=== PATIENT | male | born 1970 | race Two or more races ===

== ENCOUNTER 2016-07-08 18:57 | Emergency (ER) | payer OTHER ==
[~2016-07-08] VITALS: Ht 177.8 cm; Wt 99.8 kg
[2016-07-08 19:14] VITALS: BP 168/91
[2016-07-08] MEDS ORDERED: NAPROXEN 500 MG TABLET PO STA (20:08)
[2016-07-08] MEDS ORDERED: CYCL10TA2 PO (20:40)
[2016-07-08] MEDS ORDERED: NAPR500T PO (20:41)
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
[2016-07-08] MEDS ORDERED: CYCLOBENZAPRINE 10 MG TABLET. PO ONE (20:45)
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
== END 2016-07-08 20:47 | disposition other institution (70) ==
LOC: ER 18:57
DX: S20.212A Contusion of left front wall of thorax, initial encounter (principal); I10 Essential (primary) hypertension; V49.49XA Driver injured in collision with other motor vehicles in traffic accident, initial encounter; Y93.89 Activity, other specified; Y92.89 Other specified places as the place of occurrence of the external cause; Y99.8 Other external cause status
CPT/HCPCS: 71020; 99284